=== PATIENT | female | born 1950 | race Caucasian/White ===

== ENCOUNTER → 2016-12-06 | Outpatient (CLI) | payer OTHER ==
[~2016-12-06] MED LIST: FAMO20TA9 PO; HYZ/10015 PO; LATA0.5S OP
--- NOTE | 2016-12-06 14:51 | DIAGNOSTIC IMAGING REPORT ---
LYMPH SENTINEL NODE ID CLINICAL HISTORY: INVASIVE LOBULAR Carcinoma, left BREAST COMPARISON STUDY: No previous studies for comparison. FINDINGS: A timeout was performed. 1 perilesional and 4 intradermal injections were performed over the palpable left breast mass. A total of 0.51 mCi of technetium 99m Lymphoseek was injected. No imaging was performed. Intraoperative localization will be obtained. IMPRESSION: A left breast lymphoscintigraphy injection was performed. Electronically signed by: Anthony Alegria M.D. 12/06/2016 2:50 PM Dictated Date/Time: 12/06/2016 2:48 PM
== END | disposition home or self-care (01) ==
LOC: C.NUCL 13:47
PROVIDERS: ATTEND Surgery
DX: D05.02 Lobular carcinoma in situ of left breast (principal)

== ENCOUNTER → 2017-04-12 | Outpatient (CLI) | payer OTHER ==
[~2017-04-12] MED LIST changes: +FMR25 PO; +IBUP-1427 PO
[2017-04-12 11:23] VITALS: BP 157/86; PULSE 85; TEMP 36.6; O2SAT 94
--- NOTE | 2017-04-12 13:14 | Radiation Oncology Follow-Up ---
Radiation Oncology Follow-Up Date of Visit Apr 12, 2017. Reason For Visit One-month follow-up and cancer survivorship care plan Radiation Completion Date finished 02-26-2017 Diagnosis (1) Primary malignant neoplasm of upper outer quadrant of left female breast Status: Resolved Onset Date: 11/19/2016 Histology Subtype: lobular Stage: ll Permanent Comment: Abnormal left breast mammogram Status post ultrasound-guided core needle biopsies 11/19/2016 Invasive lobular carcinoma, grade 1 Estrogen receptor positive, progesterone receptor positive, HER-2/leighton negative Status post left partial mastectomy and deep sentinel lymph node biopsy with mapping 12/07/2016 Stage pT2 pN1mi M0 Oncotype DX score of 7 Status post completion of radiation therapy 02/26/2017. She received 5130 cGy utilizing hypo-fractionation. Last Edited By: Jessica Guerrero on Mar 11, 2017 16:52 History of Present Illness Ms. Brown is without a family history of breast cancer. She underwent a bilateral screening mammogram on 11/06/2016 at [facility]. A focal area suggestive of some spiculation was seen in the upper outer left breast with recommended spot compression CC and MLO views as well as targeted ultrasound was recommended. On 11/09/2016 patient underwent spot compression images revealing a spiculated density in the upper outer left breast at about 3: 00 approximately 7.5 cm in the nipple which persisted on compression. Targeted ultrasound of the left breast at the 3 to 4 o'clock position demonstrated an indistinct hypoechoic lesion worrisome for an infiltrative mass. Ultrasound- guided biopsy was recommended. On 11/19/2016 patient underwent ultrasound-guided biopsy of the left breast mass. This revealed an invasive lobular carcinoma Evan grade 1 of 3. Estrogen receptors were positive (100%, strong intensity, H score 300). Progesterone receptors are positive (50%, strong intensity, H score 150). HER-2 /elighton overexpression was negative. Ki-67 proliferation index was 8% (low). The tumor cells were confirmed negative for HER-2/leighton amplification by FISH analysis. Case: [id number]. Patient was seen by Dr. Dawit Santos. He discussed treatment options with the patient. The patient opted to proceed with breast conserving therapy. Therefore on 12/12/2016 she underwent a left partial mastectomy and sentinel node biopsy. This confirmed an invasive lobular carcinoma, classic type measuring 3.0 x 2.0 x 1.0 cm. There was no lymphovascular or perineural invasion identified. The tumor was present at the inked inferior inferomedial margin. The tumor was much less than 1 mm from the deep margin although no ink on tumor was noted. Additional tissue from the inferior medial margin was taken and was negative for in situ and invasive carcinoma. Additional deep tissue was also taken and was negative for in situ and invasive carcinoma. A single sentinel node was identified. This revealed a micro-metastatic deposit of lobular carcinoma measuring 1 mm in greatest dimension with no extranodal extension identified. Case: [id number]. The final AJCC pathologic stage was therefore pT2 pN(sn)1mi, ER positive, UT positive and HER-2/leighton negative. An Oncotype DX test was ordered and recently reported. The recurrence score was 7. This places her in the low risk category. The patient was seen by Dr. Neel Cardenas. After his evaluation of the patient and review of the Oncotype DX score he recommended no adjuvant systemic chemotherapy. He did recommend adjuvant antiestrogen therapy which will be started after the completion of her adjuvant radiation. We were asked to see the patient to discuss the role of adjuvant radiation. She underwent a CT simulation. She was found to be a candidate for hypo- fractionation. Her treatment was completed 02/26/2017. She received 5130 cGy. Interim History She's been doing well over the past month. There was skin irritation at the end of treatment that steadily healed. There was some mild peeling. There was itching. This is now resolved. She was started on Arimidex and took this for one week. She unfortunately had joint pain and stop the medication. She was seen in medical oncology and has been now change to Femara. She is tolerating this well and is not having the joint pain that she experienced with Arimidex. She also has been scheduled for follow-up mammography. She is going to have her mammograms at [facility]. Allergies Coded Allergies: Iodinated Diagnostic Agents (Verified Allergy, Severe, HIVES, 01/08/17) Home Medications Scheduled Famotidine (Pepcid), 20 MG PO DAILY Hctz/Losartan (Hyzaar 25MG/100MG), 1 TAB PO DAILY Latanoprost (Xalatan 0.005% Oph Valarie), 1 DROPS OP HS Letrozole (Femara), 1 TAB PO DAILY Scheduled PRN Ibuprofen Tab (Motrin), 600 MG PO Q6H PRN for Pain Review of Systems Gastrointestinal: Symptoms: WNL Oral: Symptoms: No Problems Respiratory: Symptoms: Moist Cough, SOB With Exertion, Productive Cough Sputum Character: occ clear sputum Urinary: Symptoms: Nocturia Comments: nocturia times 1 Skin: Symptoms: No Problems Breast: Right Upper Arm Measurement: 27.0 Right Mid Arm Measurement: 23.0 Right Wrist Measurement: 15.5 Left Upper Arm Measurement: 28.0 Left Mid Arm Measurement: 22.5 Left Wrist Measurement: 15.5 Arm Dominence: Right Patient Cosmetic Evaluation: Good Staff Cosmetic Evalaluation: Good Physical Exam Vital Signs Date Time Temp Pulse Resp B/P (MAP) Pulse Ox O2 Delivery O2 Flow Rate FiO2 04/12/17 11:23 36.6 85 16 157/86 94 Fatigue: None General Appearance: no apparent distress Eyes: normal inspection, EOMI ENT: normal ENT inspection, hearing grossly normal Neck: no adenopathy, thyroid normal Respiratory/Chest: lungs clear, no respiratory distress, no accessory muscle use Breast: Breast examination reveals well-healed incisions of the left breast. There are no masses or tenderness and no axillary adenopathy. There is resolving hyperpigmentation. There is minimal edema. She has no skin retractions or nipple changes. Using the [place] score cosmesis she has a good outcome. The right breast showed no masses or tenderness and no axillary adenopathy. Cardiovascular: regular rate, rhythm, no gallop, no murmur Extremities: no pedal edema Neurologic/Psychiatric: no motor/sensory deficits, alert, normal mood/affect Skin: warm/dry Lymphatic: no adenopathy Pain Management Patient Reports Pain: No Side: Bilateral Patient Preferred Pain Scale: 0 - 10 Initial Pain Intensity: 0.0 Pain Management Plan She does not require any pain management. Laboratory Laboratory Results: not applicable Pathology Pathology Results: not applicable Imaging Imaging Studies: not applicable Assessment & Plan Plan: Continue regular follow-up with Dr. Cardenas, her primary care physician , and breast surgeon. Mammography has been scheduled for June. She'll have this at [facility]. We discussed that these should continue to be diagnostic mammograms. She is going to continue the Femara. Today we completed a cancer survivorship care plan. A copy of the document was given to the patient. She was given a survivorship booklet. She continues to smoke 1-1/2 pack per day. We discussed smoke cessation. We discuss weaning off of cigarettes. She was given a card for the 1 800 quit line. She was offered to joint smoke cessation classes here or at [facility]. She declined to be referred to smoke cessation. We reviewed the late side effects of radiation and in this we discussed the concerns of treatment and effects to the lung for patients who smoke and continue to smoke. She will try to decrease smoking on her own. I've asked her to call should she change her mind about joining the smoke cessation program. Total Time In Follow-Up I spent 20 minutes speaking to the patient to perform examination. I spent 20 minutes reviewing information, preparing the survivorship document, and completing this note. [place] Copy To Dawit Santos M.D.; Kimmie Lira D.O.; Neel Cardenas MD
== END | disposition home or self-care (01) ==
LOC: C.ONC 11:16
PROVIDERS: ATTEND Physician Assistant Medical
DX: Z08 Encounter for follow-up examination after completed treatment for malignant neoplasm (principal); Z92.3 Personal history of irradiation; Z85.3 Personal history of malignant neoplasm of breast

== ENCOUNTER → 2017-04-22 | Outpatient (CLI) | payer OTHER | END | disposition home or self-care (01) | LOC: C.MAMM 14:06 | PROVIDERS: ATTEND Internal Medicine Hematology & Oncology | DX: C50.919 Malignant neoplasm of unspecified site of unspecified female breast (principal); M85.88 Other specified disorders of bone density and structure, other site ==

== ENCOUNTER 2025-03-06 14:52 | Inpatient (IN) ==
--- NOTE | 2025-03-06 15:45 | Emergency Department Note ---
Impression & Plan Hypomagnesemia, Weakness, SOLANGE (acute kidney injury), Hypokalemia, Dehydration, Unexplained weight loss, Loss of appetite, Multiple pulmonary nodules ED Provider Note CHIEF COMPLAINT: Weakness HISTORY OF PRESENTING ILLNESS: This 75-year-old female patient presents to the emergency department for evaluation of weakness. The patient states that she has not really been able to eat or drink much of anything for the past 2 months because of decreased appetite. She feels like she continues to get weaker from not eating and drinking much. She states that she just has no desire to eat anything because she has lost her taste. Mainly only eating broth at this time. She has had problems since the end of December when she had a bad taste in her mouth that she thought was from using her inhaler for her emphysema. She took a mouthwash for thrush without improvement of her symptoms. 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 She has a history of bladder cancer and has been having treatments for the past year. The patient has not had any imaging since the symptoms started. She states that the weakness is generalized and nonfocal. She states it is more to just she feels tired and weak. She will sometimes get some numbness and tingling into the hands and feet and feel dizzy and lightheaded. She states that she has lost 30 pounds since December 05, 2024. Per urology note on 12/21/2024, the patient has a history of a bladder tumor status post initial TURBT on 04/14/2024. She had an incredibly large anterior dome bladder mass that was removed. This came back high-grade cancer without muscle. The patient had a repeat resection on 06/03/2024 which was negative for carcinoma and had muscle in the specimen. The patient completed induction BCG on 08/06/2024. She completed her first dose of maintenance BCG on 11/26/2024. The patient had a cystoscopy and a CT urogram on 12/21/2024 that showed no recurrence and her cystoscopy was negative. The patient will continue on maintenance BCG at 3, 6, 12, 18, 24, 30, and 36 months. The patient has a history of breast cancer in the past as well. REVIEW OF SYSTEMS: See HPI for pertinent positives and pertinent negatives. ALLERGIES: IV contrast (able to be premedicated), terbinafine, oxybutynin, Versed MEDICATIONS: See below PAST MEDICAL HISTORY: See below PHYSICAL EXAM: VITALS: Vitals are noted on the nurse's note and reviewed by myself. GENERAL: Non toxic, in no acute distress, non-diaphoretic. SKIN: Capillary refill <2 sec. EYES: PERRLA. EOMI. Conjunctivae without injection, sclerae without icterus. NOSE: Patent without discharge. MOUTH: Mucous membranes dry. Tongue is dry and somewhat cracked as well. No evidence for thrush at this time. Uvula midline. Airway patent. NECK: Supple without nuchal rigidity. HEART: Regular rate and rhythm without murmurs gallops or rubs. LUNGS: Clear to auscultation bilaterally without wheezes, rales or rhonchi. No retractions or accessory muscle use. ABDOMEN: Positive bowel sounds x 4. Normal tympanic percussion. Soft, nontender to palpation. No masses or hepatosplenomegaly. Mathur sign negative. No CVA tenderness. No guarding, rigidity, or rebound tenderness. No focal RLQ or LLQ tenderness. MUSCULOSKELETAL: No gross musculoskeletal defects. NEURO: Patient was alert and oriented. No focal neurological deficits. DIFFERENTIAL DIAGNOSIS: Differential diagnosis includes dehydration, GERD, peptic ulcer disease, acute injury cranial abnormality, cardiopulmonary etiology, acute intra-abdominal/pelvic etiology, metastases from her bladder cancer and previous history of breast cancer, electrolyte abnormalities, vitamin deficiencies, acute renal injury, or others. ED COURSE AND MEDICAL DECISION MAKING: HISTORY FROM INDEPENDENT HISTORIAN: Additional history obtained from the patient's MEDICATIONS GIVEN: 1 L normal saline solution bolus. Pepcid 20 mg IV. She was premedicated with Benadryl 50 mg IV and Solu-Medrol [address] scan. Potassium chloride 40 meq po. Magnesium 2 g IV. MONITOR: Continuous athletic monitor: Order was placed for continuous athletic monitor. Patient was placed on the athletic monitor and continuous pulse ox. Patient was noted to be in normal sinus rhythm at an initial rate of 80 bpm per my interpretation. EKG: EKG was interpreted by myself as normal sinus rhythm at 89 bpm with no acute ST or T wave changes. INTERPRETATION OF LABS: I interpreted the labs with full lab results as below in the lab section of this note. Laboratory results pertinent to the emergent complaint are discussed in the MDM section below. The patient was advised to follow up with their PCP and/or specialist(s) for further outpatient monitoring and management of any abnormal results. INTERPRETATION OF IMAGING: Imaging studies were interpreted by myself and read by radiology as per the imaging section of this note. The patient was advised to follow up with their PCP and/or specialist(s) for further outpatient management of any non-emergent abnormal findings. CT scan of the head without contrast showed no acute intracranial abnormality. There was chronic white matter ischemic changes. CT scan of the chest with IV contrast showed scattered pulmonary nodular densities measuring up to 1.3 cm. Given symptoms and history, recommend further evaluation with PET/CT. CT scan of the abdomen and pelvis with IV contrast shows a left lower lobe lung nodule also seen on the CT scan of the chest. Cholelithiasis. Probable left adrenal adenoma. Diverticulosis. EXTERNAL RECORDS REVIEWED: I reviewed the patient's most recent urology note as summarized above. CHRONIC MEDICAL/SOCIAL CONDITIONS AFFECTING CARE: History of bladder cancer currently undergoing treatment with a history of breast cancer in the past. CONSULTATIONS: On-call hospitalist CRITICAL CARE: I have personally spent 35 minutes of critical care time in the direct management of this patient. This includes bedside care, interpretation of diagnostic studies, and testing, discussion with consultants, patient, and family members, and other required patient management activities. This 35 minutes is in excess of all separately billable procedures. MDM SUMMARY: I examined the patient. The patient states that she has not been able to eat or drink much of anything since the end of December. She states that she has no taste and no appetite. She was treated for thrush without improvement of her symptoms. She also states that she was diagnosed with burning mouth syndrome. The patient states that she has had a 30 pound weight loss since the end of November. The patient has a history of bladder cancer undergoing treatment with urology. She also has a history of breast cancer in the past. The patient denies any pain or vomiting or other symptoms at this time other than the unexplained weight loss and no appetite from lack of taste. An IV lock was placed and labs were drawn. The patient was given 1 L normal saline solution bolus as well as Pepcid 20 mg IV. The patient was premedicated with Benadryl and Solu-Medrol prior to CT scan. The patient's potassium was low and she was given oral potassium supplement. The patient's magnesium was significantly low and she was given magnesium 2 g IV. The patient declined any medication for pain or nausea while she was in the emergency department. White blood cell count normal at 7.12. Hemoglobin elevated at 16.5 which may be secondary to dehydration. Platelet count normal at 192. INR elevated at 1.2 and PTT elevated at 12.4. Potassium low at 3.0 and she was given an oral potassium supplement. Creatinine elevated at 1.97 and BUN elevated at 28 which is likely secondary from her dehydration. Anion gap elevated at 20. Sodium was normal. LFTs were normal. Total protein elevated 8.6, globulin high at 4.8. Magnesium significantly low at 0.8 and she was given 2 g of magnesium IV. High- sensitivity troponin slightly elevated at 14.8, but improved to 13.4 on repeat. Lipase normal. Vitamin B12 elevated at 1330. Vitamin D normal at 38. TSH normal. The patient was unable to give a urine sample while in the ER. CT scan of the head without contrast showed no acute intracranial abnormality. There was chronic white matter ischemic changes. CT scan of the chest with IV contrast showed scattered pulmonary nodular densities measuring up to 1.3 cm. Given symptoms and history, recommend further evaluation with PET/CT. CT scan of the abdomen and pelvis with IV contrast shows a left lower lobe lung nodule also seen on the CT scan of the chest. Cholelithiasis. Probable left adrenal adenoma. Diverticulosis. I had a meaningful discussion about this patient with Dr. Agustin who agrees with my assessment and the treatment plan. The patient has evidence of dehydration as well as significant hypomagnesemia on exam. The patient has been failing to thrive at home due to her lack of appetite and unexplained weight loss. Therefore, the patient will require admission for further management. I spoke with the on-call hospitalist who agreed to admit the patient for further evaluation and treatment. Please refer to their dictation for further details. The patient's care was transferred in stable condition. DIAGNOSIS: Significant hypomagnesemia Dehydration Acute kidney injury Hypokalemia Unexplained weight loss Loss of appetite Pulmonary nodules Weakness Past Med/Surg History Problem List (Updated 03/07/25 @ 01:12 by Cathi Aguilar PA-C) Multiple pulmonary nodules (Acute) Loss of appetite (Acute) Unexplained weight loss (Acute) Dehydration (Acute) Elevated troponin Hypokalemia (Acute) Hypomagnesemia (Acute) SOLANGE (acute kidney injury) (Acute) Weakness (Acute) History of left breast cancer Declined smoking cessation Urinary disorder Gross hematuria Bladder carcinoma Hypertension COPD (chronic obstructive pulmonary disease) 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) Medical History Hx of bladder cancer area removed in Apr 2024 > no chemo or rad Limb alert care status left arm Acid reflux HX: breast cancer (11/19/16) left HTN (hypertension) Hx of bronchitis Slow to wake up after anesthesia was given something to relax her that made her feel like she was going to "pass out" On home oxygen therapy on 2lpm via NC at HS COPD (chronic obstructive pulmonary disease) with emphysema no res inh > controlled per pt Surgical History History of tooth extraction History of urologic surgery Transurethral Resection of the Bladder Tumor Hx of cystoscopy History of partial mastectomy of left breast (2016) Family History Father Depression Heart disease Mother Hypertension Stroke Social History Smoking Status: Current every day smoker Tobacco Type: Cigarettes Cigarettes Per Day: 10; Second Hand Exposure: No; Do You Dip or Chew Tobacco: No; Hx Alcohol Use: No Hx Substance Use: No Preferred Language: Cameroonian Communication Ability: Effective R And D Lab Technician Required: No Beliefs That Will Affect Care: None marital status: Current Living Situation: Spouse current occupational status: retired How many Children do You have: 2 Feels Safe at Home: Yes Diet: regular during the past year weight has: increased > 10 lbs Assistive Devices: Glasses and Oxygen - at Night Allergies Allergies Allergy/AdvReac Type Severity Reaction Status Date / Time Iodinated Contrast Media Allergy Severe HIVES Verified 07/30/24 13:38 terbinafine Allergy Severe Altered Verified 02/11/25 13:50 Sense of Taste oxybutynin AdvReac Intermediate dizzy and Verified 07/30/24 13:38 passes out midazolam [From Versed] AdvReac Verified 07/30/24 13:38 Home Meds Home Medications Medication Instructions Recorded Confirmed amlodipine 5 mg tablet 5 mg PO QAM 01/17/23 03/06/25 calcium 600 mg (as 1 cap PO DAILY 01/17/23 03/06/25 carbonate)-vitamin D3 12.5 mcg (500 unit) capsule latanoprost 0.005 % eye drops 1 drp ophthalmic (eye) HS 01/17/23 03/06/25 losartan 100 mg tablet 100 mg PO QAM 01/17/23 03/06/25 omeprazole 20 mg capsule,delayed 20 mg PO QAM 02/11/24 03/06/25 release umeclidinium 62.5 mcg-vilanterol 1 inh inhalation QAM 02/11/24 03/06/25 25 mcg/actuation powdr for inhalation (Anoro Ellipta) ibuprofen 200 mg tablet 200 mg PO Q6H PRN Pain 05/19/24 03/06/25 Results & Data (ED) Vital Signs Vital Signs - 24 hr 03/06/25 14:52 03/06/25 14:52 03/06/25 14:53 Temperature 37 C Temperature Source Temporal Artery Scan Pulse Rate 100 H Pulse Rate [Apical] 78 Pulse Rate from SpO2 Sensor Pulse Rhythm [Apical] Respiratory Rate 18 18 Respiratory Effort / Characteristics Non-Labored Spontaneous Non-Labored Spontaneous Respiratory Depth Normal Normal Respiratory Pattern Regular Blood Pressure 105/68 Blood Pressure [Right Arm] 106/65 Blood Pressure Mean 80 Blood Pressure Mean [Right Arm] 78 Pulse Oximetry 97 91 Oxygen Delivery Method Room Air Room Air Room Air Oxygen Flow Rate Sepsis Recent Fever Within 48 Hours No Sepsis New/Unexplained Change in Mental Status N/A Sepsis Action Taken by Nursing No Action Required 03/06/25 15:27 03/06/25 16:24 03/06/25 16:52 Temperature Temperature Source Pulse Rate 75 Pulse Rate [Apical] 76 Pulse Rate from SpO2 Sensor Pulse Rhythm [Apical] Respiratory Rate 18 Respiratory Effort / Characteristics Non-Labored Spontaneous Respiratory Depth Normal Respiratory Pattern Blood Pressure Blood Pressure [Right Arm] 109/59 L Blood Pressure Mean Blood Pressure Mean [Right Arm] 75 Pulse Oximetry 97 Oxygen Delivery Method Room Air Room Air Oxygen Flow Rate Sepsis Recent Fever Within 48 Hours Sepsis New/Unexplained Change in Mental Status Sepsis Action Taken by Nursing 03/06/25 18:00 03/06/25 18:33 03/06/25 19:00 Temperature Temperature Source Pulse Rate Pulse Rate [Apical] 86 Pulse Rate from SpO2 Sensor 74 Pulse Rhythm [Apical] Regular Respiratory Rate 18 Respiratory Effort / Characteristics Non-Labored Spontaneous Respiratory Depth Normal Respiratory Pattern Regular Blood Pressure 116/57 L Blood Pressure [Right Arm] Blood Pressure Mean 76 Blood Pressure Mean [Right Arm] Pulse Oximetry 86 L 96 90 Oxygen Delivery Method Room Air Nasal Cannula Nasal Cannula Oxygen Flow Rate 2 2 Sepsis Recent Fever Within 48 Hours Sepsis New/Unexplained Change in Mental Status Sepsis Action Taken by Nursing Laboratory Data 03/06/25 15:11 03/06/25 15:11 Lab Results 03/06/25 03/06/25 03/06/25 Range/Units 15:11 18:27 18:36 WBC 7.12 (4.8-10.8) K/ul RBC 5.65 H (4.20-5.40) M/uL Hgb 16.5 H (12.0-16.0) g/dL Hct 47.5 H (37.0-47.0) % MCV 84.1 (80.0-100.0) fL MCH 29.2 (25.0-34.0) pg MCHC 34.7 (32.0-36.0) g/dL RDW Std Deviation 42.2 (36.4-46.3) fL RDW Coeff of Chad 13.8 (11.5-14.5) % Plt Count 192 (130-400) K/uL MPV 13.4 H (9.4-12.4) fL Immature Gran % (Auto) 0.4 % Neut % (Auto) 68.8 % Lymph % (Auto) 22.5 % Major % (Auto) 7.3 % Eos % (Auto) 0.3 % Baso % (Auto) 0.7 % Neut # (Auto) 4.90 (1.40-6.50) K/uL Lymph # (Auto) 1.60 (1.20-3.40) K/uL Major # (Auto) 0.52 (0.11-0.59) K/uL Eos # (Auto) 0.02 (0.00-0.50) K/uL Baso # (Auto) 0.05 (0.00-0.20) K/uL Immature Gran # (Auto) 0.03 (0.01-0.20) K/uL PT Cancelled 12.4 H INR Cancelled 1.2 H APTT Cancelled 27 PTT Ratio Cancelled 1.0 Sodium 139 (136-145) mmol/L Potassium 3.0 L (3.5-5.1) mmol/L Chloride 98 (98-107) mmol/L Carbon Dioxide 21 (21-32) mmol/L Anion Gap 20 H (3-11) BUN 28 H (6-23) mg/dl Creatinine 1.97 H (0.6-1.2) mg/dl Est Cr Clr Drug Dosing Not Reportable eGFR 26.20 BUN/Creatinine Ratio 14.2 (10-20) Glucose 85 (70-99(Fasting)) mg/dl Calcium 9.0 (8.6-10.3) mg/dl Magnesium 0.8 L* (1.7-2.4) mg/dl Total Bilirubin 0.7 (0.2-1.0) mg/dl AST 14 (13-39) U/L ALT 9 (7-52) U/L Alkaline Phosphatase 94 (34-104) U/L Total Creatine Kinase 41 (26-192) U/L Troponin I High Sens 14.8 H 13.4 (0-14) pg/ml Total Protein 8.6 H (6.0-8.3) gm/dl Albumin 3.8 (3.4-5.0) gm/dl Globulin 4.8 H (2.5-4.0) gm/dl Albumin/Globulin Ratio 0.8 L (0.9-2) Lipase 39 (11-82) U/L Vitamin B12 1330 H (180-914) pg/ml 25-OH Vitamin D Total 38.0 (30-100) ng/ml TSH 1.535 (0.300-4.500) uIu/ml Lyme Disease Screen Negative (Negative) Administered Medications Magnesium Sulfate/Dextrose (Magnesium Sulfate / D5w) 1 gm in 100 mls @ 50 mls/hr IV Q2H MYRNA Stop: 03/07/25 00:59 Last Admin: 03/07/25 00:10 Dose: 50 mls/hr Documented By: uriel Discontinued Medications Diphenhydramine HCl (Diphenhydramine 50 Mg/Ml Vial) 50 mg IV ONE ONE Stop: 03/06/25 16:25 Last Admin: 03/06/25 16:48 Dose: 50 mg Documented By: nrs Sodium Chloride (Nss) 1,000 mls @ 999 mls/hr IV .Q1H1M ONE Stop: 03/06/25 17:24 Last Infusion: 03/06/25 17:42 Dose: Infused Documented By: nrs Admin: 03/06/25 16:49 Dose: 999 mls/hr Documented By: nrs Famotidine (Pepcid 20mg Iv Push) 20 mg in 5 mls @ 2.5 mls/min IV NOW STA Stop: 03/06/25 16:25 Last Admin: 03/06/25 16:49 Dose: 2.5 mls/min Documented By: nrs Magnesium Sulfate/Dextrose (Magnesium Sulfate / D5w) 1 gm in 100 mls @ 200 mls/hr IV Q30M MYRNA Stop: 03/06/25 18:49 Last Infusion: 03/06/25 19:20 Dose: Infused Documented By: Admin: 03/06/25 18:50 Dose: 200 mls/hr Documented By: Infusion: 03/06/25 18:39 Dose: Infused Documented By: Admin: 03/06/25 18:09 Dose: 200 mls/hr Documented By: mildred Lactated Ringer's (Lr) 1,000 mls @ 999 mls/hr IV .Q1H1M ONE Stop: 03/06/25 21:57 Last Admin: 03/07/25 00:04 Dose: 999 mls/hr Documented By: uriel Ioversol (Optiray 320 100ml) 90 ml IV ONCE ONE Stop: 03/06/25 17:54 Last Admin: 03/06/25 17:54 Dose: 90 ml Documented By: BALTAZAR Methylprednisolone (Methylprednisolone 125 Mg/2 Ml Vial) 40 mg IV NOW ONE Stop: 03/06/25 16:25 Last Admin: 03/06/25 16:48 Dose: 40 mg Documented By: mildred Potassium Chloride (Potassium Chloride Crtab 20 Meq Tabcr) 40 meq PO NOW STA Stop: 03/06/25 17:33 Last Admin: 03/06/25 17:40 Dose: 40 meq Documented By: nrs Imaging Data Radiologist's Impression: Abdomen/Pelvis CT 03/06/25 16:24 INDICATION: Loss of appetite, unexplained weight loss COMPARISON: None TECHNIQUE: Contiguous axial CT images were obtained through the abdomen and pelvis. Dose reduction according to patient size and/or automated exposure control techniques have been utilized for this exam. FINDINGS: CT ABDOMEN: LUNG BASES: Numerous bulla.Pulmonary scarring. There is 1 cm noncalcified pulmonary nodule in the left lower lobe. LIVER: No worrisome hepatic lesions. SPLEEN: Unremarkable. GALLBLADDER: Calcified gallstones. KIDNEYS: No hydronephrosis or nephrolithiasis. No solid renal lesions. PANCREAS: Unremarkable. ADRENAL GLANDS: Hypertrophy of the right adrenal gland. There is 1.4 cm low-attenuation left adrenal gland nodule, statistically representing an adenoma. PROXIMAL BOWEL: No small bowel obstruction. RETROPERITONEUM: No AAA. No significant lymphadenopathy. OTHER: No abscess. Grade 1 spondylolisthesis of L5 on S1 with bilateral L5 pars defects CT PELVIS: URINARY BLADDER: Unremarkable. PELVIC ORGANS: Unremarkable. DISTAL BOWEL: [id number] stool in the colon. Multiple scattered sigmoid diverticula OTHER: No significant lymphadenopathy. There is no free pelvic fluid. IMPRESSION: Left lower lobe lung nodule. Further evaluation with nuclear medicine pet imaging should be considered. Cholelithiasis. Probable left adrenal adenoma. Diverticulosis. Electronically signed by Guillermo Muniz 03-06-2025 6:[address] 03/06/25 16:24 CT CHEST WITH CONTRAST: HISTORY: Unexpected weight loss. History of cancer TECHNIQUE: CT of the chest was obtained with intravenous contrast. Coronal and sagittal reformats were created. IV CONTRAST: 100 mL of OMNIPAQUE 300 COMPARISON: None FINDINGS: LOWER NECK: Right thyroid lobe nodule measuring 1.3 cm LYMPH NODES: A few small nonenlarged lymph nodes in the mediastinum. No lymphadenopathy by size criteria. CARDIOVASCULAR: Cardiac size is mildly enlarged. Mild coronary artery calcifications are noted. No aortic aneurysm. No evidence of central pulmonary embolism or acute aortic process. Small pericardial fluid LUNGS: The trachea and central bronchi are widely patent. No focal confluent infiltrates are seen. Diffuse emphysema and pulmonary fibrosis with extensive cystic changes of the lungs. There are multiple nodular densities in the lungs. For example in the left lower lobe there are nodular densities measuring up to 1.1 cm in size (series 9, image 183). There is also a spiculated nodular density in the right upper lobe measuring approximately 1.3 cm (series 9 image 90). PLEURA: There are no pleural effusions. There is no pneumothorax. OSSEOUS STRUCTURES: No acute findings IMPRESSION: Scattered pulmonary nodular densities as above measuring up to 1.3 cm. Given symptoms and history, recommend further evaluation with PET/CT Electronically signed by Speedy Cordero 03-06-2025 7:[address] 03/06/25 16:24 INDICATION: Unexplained weight loss. Loss of appetite. COMPARISON: None TECHNIQUE: Contiguous 5 mm axial images from foramen magnum to vertex were obtained. Dose reduction according to patient size and/or automated exposure control techniques have been utilized for this exam. FINDINGS: There is no evidence of acute hemorrhage or mass effect. Bilateral white matter low attenuation areas are nonspecific, but likely related to chronic small vessel ischemic changes. There is no evidence of hydrocephalus, midline shift, or extra-axial fluid collections. IMPRESSION: 1. No CT evidence of acute intracranial pathology. 2. Chronic white matter ischemic changes. Electronically signed by Guillermo Muniz 03-06-2025 6:26 PM Discharge Plan Visit Data Chief Complaint: Weakness Stated Complaint: WEAKNESS, DECREASED PO INTAKE ED Provider: Parag Agustin ED Midlevel Provider: Cathi Aguilar Discharge Problem: Hypomagnesemia, Weakness, SOLANGE (acute kidney injury), Hypokalemia, Dehydration, Unexplained weight loss, Loss of appetite, Multiple pulmonary nodules Patient Disposition: Admitted As Inpatient Condition: Fair Discharge Instructions Interventions: ED Discharge Assessment Last Done: 03/06/25 20:55
[2025-03-06] MEDS: diphenhydrAMINE 50 MG/ML VIAL IV ONE (16:48)
[2025-03-06] MEDS: SODIUM CHLORIDE 0.9% 1,000 ML IV ONE (16:49)
[2025-03-06] MEDS: FAMOTIDINE 20MG IV PUSH 20 MG/5 ML SYR IV STA (16:49)
[2025-03-06 16:50] LABS: Hematocrit (blood only) 47.5 % (37.0-47.0); Hemoglobin 16.5 g/dL (12.0-16.0); Immature Granulocytes # (auto) 0.03 K/uL (0.01-0.20); Immature Granulocytes % (auto) 0.4 %; Mean Corpuscular Hemoglobin 29.2 pg (25.0-34.0); Mean Corpuscular Volume 84.1 fL (80.0-100.0); Platelet Count 192 K/uL (130-400); RDW Standard Deviation 42.2 fL (36.4-46.3); Red Blood Count 5.65 M/uL (4.20-5.40); White Blood Count 7.12 K/ul (4.8-10.8)
[2025-03-06 17:10] LABS: Anion Gap 20 (3-11); Calcium 9.0 mg/dl (8.6-10.3); Carbon Dioxide 21 mmol/L (21-32); Chloride 98 mmol/L (98-107); Potassium 3.0 mmol/L (3.5-5.1); Sodium 139 mmol/L (136-145)
[2025-03-06 17:16] LABS: Blood Urea Nitrogen 28 mg/dl (6-23); Glucose 85 mg/dl (70-99(Fasting))
[2025-03-06 17:29] LABS: Thyroid Stimulating Hormone 1.535 uIu/ml (0.300-4.500)
[2025-03-06] MEDS: POTASSIUM CHLORIDE CRTAB 20 MEQ TABCR PO STA (17:40)
[2025-03-06 17:47] LABS: Alanine Aminotransferase 9 U/L (7-52); Albumin Globulin Ratio 0.8 (0.9-2); Albumin Level 3.8 gm/dl (3.4-5.0); Alkaline Phosphatase 94 U/L (34-104); Bilirubin,Total 0.7 mg/dl (0.2-1.0); Globulin 4.8 gm/dl (2.5-4.0); Lipase 39 U/L (11-82); Magnesium 0.8 mg/dl (1.7-2.4); Total Protein 8.6 gm/dl (6.0-8.3)
[2025-03-06] MEDS: OPTIRAY 320 100ml IV ONE (17:54)
--- NOTE | 2025-03-06 17:55 | Emergency Department Note ---
ED Visit Note I had a meaningful discussion with the PA regarding patient. Though I did not see the patient face to face, I personally approved and/or made the documented management plan and acknowledge risk and complications. .
[2025-03-06] MEDS: MAGNESIUM SULFATE / D5W 1 GM/100 ML BAG IV SCH (18:09)
--- NOTE | 2025-03-06 18:25 | CT Scan Report ---
INDICATION: Loss of appetite, unexplained weight loss COMPARISON: None TECHNIQUE: Contiguous axial CT images were obtained through the abdomen and pelvis. Dose reduction according to patient size and/or automated exposure control techniques have been utilized for this exam. FINDINGS: CT ABDOMEN: LUNG BASES: Numerous bulla.Pulmonary scarring. There is 1 cm noncalcified pulmonary nodule in the left lower lobe. LIVER: No worrisome hepatic lesions. SPLEEN: Unremarkable. GALLBLADDER: Calcified gallstones. KIDNEYS: No hydronephrosis or nephrolithiasis. No solid renal lesions. PANCREAS: Unremarkable. ADRENAL GLANDS: Hypertrophy of the right adrenal gland. There is 1.4 cm low-attenuation left adrenal gland nodule, statistically representing an adenoma. PROXIMAL BOWEL: No small bowel obstruction. RETROPERITONEUM: No AAA. No significant lymphadenopathy. OTHER: No abscess. Grade 1 spondylolisthesis of L5 on S1 with bilateral L5 pars defects CT PELVIS: URINARY BLADDER: Unremarkable. PELVIC ORGANS: Unremarkable. DISTAL BOWEL: [id number] stool in the colon. Multiple scattered sigmoid diverticula OTHER: No significant lymphadenopathy. There is no free pelvic fluid. IMPRESSION: Left lower lobe lung nodule. Further evaluation with nuclear medicine pet imaging should be considered. Cholelithiasis. Probable left adrenal adenoma. Diverticulosis. Electronically signed by Guillermo Muniz 03-06-2025 6:23 PM
--- NOTE | 2025-03-06 18:26 | CT Scan Report ---
INDICATION: Unexplained weight loss. Loss of appetite. COMPARISON: None TECHNIQUE: Contiguous 5 mm axial images from foramen magnum to vertex were obtained. Dose reduction according to patient size and/or automated exposure control techniques have been utilized for this exam. FINDINGS: There is no evidence of acute hemorrhage or mass effect. Bilateral white matter low attenuation areas are nonspecific, but likely related to chronic small vessel ischemic changes. There is no evidence of hydrocephalus, midline shift, or extra-axial fluid collections. IMPRESSION: 1. No CT evidence of acute intracranial pathology. 2. Chronic white matter ischemic changes. Electronically signed by Guillermo Muniz 03-06-2025 6:26 PM
--- NOTE | 2025-03-06 19:06 | CT Scan Report ---
CT CHEST WITH CONTRAST: HISTORY: Unexpected weight loss. History of cancer TECHNIQUE: CT of the chest was obtained with intravenous contrast. Coronal and sagittal reformats were created. IV CONTRAST: 100 mL of OMNIPAQUE 300 COMPARISON: None FINDINGS: LOWER NECK: Right thyroid lobe nodule measuring 1.3 cm LYMPH NODES: A few small nonenlarged lymph nodes in the mediastinum. No lymphadenopathy by size criteria. CARDIOVASCULAR: Cardiac size is mildly enlarged. Mild coronary artery calcifications are noted. No aortic aneurysm. No evidence of central pulmonary embolism or acute aortic process. Small pericardial fluid LUNGS: The trachea and central bronchi are widely patent. No focal confluent infiltrates are seen. Diffuse emphysema and pulmonary fibrosis with extensive cystic changes of the lungs. There are multiple nodular densities in the lungs. For example in the left lower lobe there are nodular densities measuring up to 1.1 cm in size (series 9, image 183). There is also a spiculated nodular density in the right upper lobe measuring approximately 1.3 cm (series 9 image 90). PLEURA: There are no pleural effusions. There is no pneumothorax. OSSEOUS STRUCTURES: No acute findings IMPRESSION: Scattered pulmonary nodular densities as above measuring up to 1.3 cm. Given symptoms and history, recommend further evaluation with PET/CT Electronically signed by Speedy Cordero 03-06-2025 7:04 PM
--- NOTE | 2025-03-06 19:39 | History & Physical Report ---
Date of Service March 06, 2025 Assessment & Plan (1) Weakness: (2) SOLANGE (acute kidney injury): (3) Hypomagnesemia: (4) Hypokalemia: (5) Elevated troponin: Plan 75-year-old female PMHx COPD, HTN, bladder carcinoma s/p TURBT 04/14/2024, history of breast cancer presenting for weakness x 2 months. Her evaluation is significant for potassium of 3, magnesium 0.8, elevated creatinine. Troponin slightly elevated at 14.8, EKG without ischemic changes. Elevated B12. Her imaging reveals scattered pulmonary nodules, no acute changes otherwise. Admission for SOLANGE, hypomagnesemia/hypokalemia. #Weakness Ongoing x 2 months, suspect multifactorial. Patient with SOLANGE, hypomagnesemia/hypokalemia. Has been unable to tolerate oral intake secondary to oral symptoms. Suspect majority of her symptoms are because of this, she does appear dry on labs. Workup does not reveal any acute indications of infection, normal cardiac markers, normal thyroid. Pending UA. Pending remaining workup. - CBC without leukocytosis or leukopenia, H&H 16.5/47.5; PT/INR 12.4/1.2; CMP K 3.0, BUN 28, creatinine 1.97, protein 8.6, globulin 4.8; magnesium 0.8; troponin 14.8, 13.4 on repeat; vitamin B12 1330, TSH 1.535 - BMP am - UA pending - Head CT without acute findings - Chest CT scattered pulmonary nodular densities up to 1.3 cm - CTAP LLL nodule, cholelithiasis, probable L adrenal adenoma, diverticulosis - IVF LR 1L bolus then 100 mL/h - Acetaminophen prn fever/pain - Zofran prn N/V - Deferred antibiotics at time of admission, no clear infection nor having infectious symptoms (stable to CBC, no infectious findings on imaging) - adjust as medically appropriate - PT/OT consulted - appreciate assistance #SLOANGE Likely secondary to renal hypoperfusion from decreased intake over the past 2 months. Received 1L NSS. - Cr 1.97, BUN 28 - BMP am - UA pending - Bladder scan prn - CTAP - Hold nephrotoxic agents - Avoid NSAIDs - IVF LR 1L now then @ 100 mL/hr #Hypomagnesemia/Hypokalemia Weakness, ongoing x 2 months. Decrease intake overall secondary to poor taste with oral intake. Received KCl 40 mEq p.o. and mag sulfate 2 g IV in ED. - K 3.0, Mag 0.8 - BMP, Mg am - EKG NSR - Mag sulfate 2g IV now - total 4g IV - Mg pending repeat after replacement #Pulmonary nodules/COPD/nicotine dependence Pt reports knowing of L lung nodule, h/o smoking + COPD. Still smokes, ~ 1ppd. - Chest CT scattered pulmonary nodular densities - CTAP LLL nodule - consider PET scan - O2 2L HS - continue - Continue inhalers - Nicotine 21mg patch prn - Encouraged cessation #Elevated troponin Pt w/ h/o PVCs, COPD. No current chest pain or SOB. - Troponin 14.8, 13.4 - repeat if chest pain - EKG NSR, without ischemic changes - Likely 2/2 demand #Burning Mouth Syndrome Follow-up with ENT, PCP for such. Reports ongoing send December. Initially had periodontal infection in beginning of December 2024. Continues to have "f lowered sawdust" taste in mouth. No prior rheumatological workup, does have a slight adenoma identified on CTAP as well as right changes of the lungs. ? Sjogren's vs tick vs vitamin. Patient does states that she has an upcoming appointment with provider specializing in this condition, however, will add additional workup to rule out different etiologies of her symptoms. - DEBBIE, ESR, CRP, histoplasmosis ab, [place], iron panel, folate, B6, anti-Ro, anti- La, tick panel, CK pending - Full liquid diet for now as requested per patient, can advance as patient tolerates - Magic mouthwash [facility] #Bladder CA- S/p TURBT 04/14/2024, repeat resection 06/03/2024 negative for carcinoma, induction BCG completed 08/06/2024; ongoing BCG treatment starting 03/11/2025; continues to follow with urology, most recent visit 12/21/2024 - continue to monitor #Breast CA- L sided 11/19/2016 #Adrenal adenoma- Identified on CTAP, L adrenal adenoma - ? Systemic condition, continue to monitor as appropriate #HTN- Amlodipine, losartan - continue #GERD- Omeprazole - hold at time of admission, electrolyte disturbances Dispo: Admit, med/tele VTE prophylaxis: SCDs This document was dictated utilizing [employer]. Please excuse any grammatical errors that may be secondary to use of this software. Admission and Anticipated Discharge Date Admission Date: 03/06/2025 History of Present Illness Chief Complaint: Weakness Primary Care Provider: DIMITRI Leon 75-year-old female PMHx COPD, HTN, bladder carcinoma s/p TURBT 04/14/2024, history of breast cancer presenting for weakness x 2 months. Patient reports 2 years ago she had episode of similar symptoms where she had a bad taste in her mouth. It was found to be peritonsillar disease and she was treated with antibiotics and it resolved. 2 days WOODEN FENCE [employer] she states she had a "bad taste" in her mouth so she called her dentist at that time again who to treat her with antibiotics and then evaluated her oropharynx, she was without definable lesions. She was on oral antibiotics as well as Biotene mouthwash, toothpaste. Patient continued to have ongoing symptoms, were not resolved with medications. Was seen by ENT, diagnosed with burning mouth syndrome. She reports inability to tolerate solid foods given the abnormal sensation and dryness in her mouth. She does drink liquids, but still has some difficulties with this. Denies any pain or odynophagia, just has an abnormal taste that has been bothersome to her specially when eating. She does occasionally have sensation that there is "snot stuck in her throat". No additional congestive symptoms, no coughing. Given her inability to tolerate oral intake, she has had ongoing weakness worsening since this is started. Weakness is described as generalized, no focal deficits. She does have lightheadedness, specifically when changing positions. Has not passed out. No falls. She does have a history of COVID. Denies chest pain, SOB, palpitations, abdominal pain, N/V/D/C, focal deficits (extremities), fever/chills, additional URI symptoms, falls or syncope. Patient does have upcoming BCG treatment for bladder cancer first week of March. ED evaluation CBC without leukocytosis or leukopenia, H&H 16.5/47.5, platelets WNL; PT/INR pending; CMP potassium 3, AG 12, BUN 28, creatinine 1.97, protein 8.6, globulin 4.8; magnesium 0.8; troponin 14.8, pending repeat; vitamin B12 1330, TSH 1.535; CTAP left lower lobe nodule, cholelithiasis, probable L adrenal adenoma, diverticulosis; chest CT scattered pulmonary nodular densities; head CT no acute findings, chronic white matter ischemic changes; EKG NSR at 89 bpm.; Provided with 1L NSS, KCl 40 mEq p.o., methylprednisolone 40 mg IV, mag sulfate 2 g IV, famotidine 20 mg IV, diphenhydramine 50 mg IV in ED. Please see Dr. Naylor's attestation for adjustments/additions to treatment plan. Allergies Allergy/AdvReac Type Severity Reaction Status Date / Time Iodinated Contrast Media Allergy Severe HIVES Verified 07/30/24 13:38 terbinafine Allergy Severe Altered Verified 02/11/25 13:50 Sense of Taste oxybutynin AdvReac Intermediate dizzy and Verified 07/30/24 13:38 passes out midazolam [From Versed] AdvReac Verified 07/30/24 13:38 Home Medications Medication Instructions Recorded Confirmed Type amlodipine 5 mg tablet 5 mg PO QAM 01/17/23 03/06/25 History calcium 600 mg (as 1 cap PO DAILY 01/17/23 03/06/25 History carbonate)-vitamin D3 12.5 mcg (500 unit) capsule latanoprost 0.005 % eye drops 1 drp ophthalmic (eye) HS 01/17/23 03/06/25 History losartan 100 mg tablet 100 mg PO QAM 01/17/23 03/06/25 History omeprazole 20 mg capsule,delayed 20 mg PO QAM 02/11/24 03/06/25 History release umeclidinium 62.5 mcg-vilanterol 1 inh inhalation QAM 02/11/24 03/06/25 History 25 mcg/actuation powdr for inhalation (Anoro Ellipta) ibuprofen 200 mg tablet 200 mg PO Q6H PRN Pain 05/19/24 03/06/25 History Past Med/Surg History Problem List (Updated 03/07/25 @ 16:32 by Drake Moreira PA-C) Tobacco user On home oxygen therapy on 2lpm via NC at HS Multiple pulmonary nodules (Acute) Loss of appetite (Acute) Unexplained weight loss (Acute) Dehydration (Acute) Elevated troponin Hypokalemia (Acute) Hypomagnesemia (Acute) SOLANGE (acute kidney injury) (Acute) Weakness (Acute) History of left breast cancer Declined smoking cessation Urinary disorder Gross hematuria Bladder carcinoma Hypertension COPD (chronic obstructive pulmonary disease) 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) Medical History Hx of bladder cancer area removed in Apr 2024 > no chemo or rad Limb alert care status left arm Acid reflux HX: breast cancer (11/19/16) left HTN (hypertension) Hx of bronchitis Slow to wake up after anesthesia was given something to relax her that made her feel like she was going to "pass out" On home oxygen therapy on 2lpm via NC at HS COPD (chronic obstructive pulmonary disease) with emphysema no res inh > controlled per pt Surgical History History of tooth extraction History of urologic surgery Transurethral Resection of the Bladder Tumor Hx of cystoscopy History of partial mastectomy of left breast (2016) Family History Father Depression Heart disease Mother Hypertension Stroke Social History Smoking Status: Current every day smoker Tobacco Type: Cigarettes Cigarettes Per Day: 10; Second Hand Exposure: No; Do You Dip or Chew Tobacco: No; Hx Alcohol Use: No Hx Substance Use: No Preferred Language: Mosotho Communication Ability: Effective Installation Drafter Required: No Beliefs That Will Affect Care: None marital status: Current Living Situation: Spouse current occupational status: retired How many Children do You have: 2 Feels Safe at Home: Yes Diet: regular during the past year weight has: increased > 10 lbs Assistive Devices: Glasses and Oxygen - at Night Review of Systems Review of Systems: All systems reviewed & are unremarkable except as noted in Subjective Physical Exam Physical Exam: General: No acute distress Skin: Warm and dry Head: Normocephalic, atraumatic Eyes: PERRL, conjunctivae clear, sclera non-icteric; wearing glasses ENT: External ear and ear canal without swelling; nose atraumatic; good dentition, tongue normal appearance, pharynx normal, no visible ulcers Neck: Supple, no LAD Cardio: RRR, no M/G/R, S1 and S2 normal Resp: O2 via NC; No respiratory distress, Lungs CTA in all lobes bilaterally, no wheezes, rales, or rhonchi Abdomen: Soft, symmetric, nontender; No masses or hepatosplenomegaly; Bowel sounds normoactive MSK: No deformities; pulses palpable and equal; no edema. Neuro: Awake, alert; Sensation intact bilaterally; CN grossly intact Psych: Appropriate mood and affect; good judgement and insight. and PA student present in room at time of visit. Results & Data Results & Data Vital Signs (Past 12 Hours) Vital Signs Temp Pulse Pulse Resp BP BP Pulse Ox 03/06/25 19:00 116/57 L 90 03/06/25 18:33 96 03/06/25 18:00 86 18 86 L 03/06/25 16:52 76 18 109/59 L 97 03/06/25 16:24 03/06/25 15:27 75 03/06/25 14:53 37 C 100 H 18 105/68 91 03/06/25 14:52 78 18 106/65 97 03/06/25 14:52 O2 Del Method O2 Flow Rate 03/06/25 19:00 Nasal Cannula 2 03/06/25 18:33 Nasal Cannula 2 03/06/25 18:00 Room Air 03/06/25 16:52 Room Air 03/06/25 16:24 Room Air 03/06/25 15:27 03/06/25 14:53 Room Air 03/06/25 14:52 Room Air 03/06/25 14:52 Room Air Laboratory Results 03/06/25 15:11 WBC 7.12 RBC 5.65 H Hgb 16.5 H Hct 47.5 H MCV 84.1 MCH 29.2 MCHC 34.7 RDW Std Deviation 42.2 RDW Coeff of Chad 13.8 Plt Count 192 MPV 13.4 H Immature Gran % (Auto) 0.4 Neut % (Auto) 68.8 Lymph % (Auto) 22.5 Emmet % (Auto) 7.3 Eos % (Auto) 0.3 Baso % (Auto) 0.7 Neut # (Auto) 4.90 Lymph # (Auto) 1.60 Emmet # (Auto) 0.52 Eos # (Auto) 0.02 Baso # (Auto) 0.05 Immature Gran # (Auto) 0.03 PT Cancelled INR Cancelled APTT Cancelled PTT Ratio Cancelled Sodium 139 Potassium 3.0 L Chloride 98 Carbon Dioxide 21 Anion Gap 20 H BUN 28 H Creatinine 1.97 H Est Cr Clr Drug Dosing Not Reportable eGFR 26.20 BUN/Creatinine Ratio 14.2 Glucose 85 Calcium 9.0 Magnesium 0.8 L* Total Bilirubin 0.7 AST 14 ALT 9 Alkaline Phosphatase 94 Troponin I High Sens 14.8 H Total Protein 8.6 H Albumin 3.8 Globulin 4.8 H Albumin/Globulin Ratio 0.8 L Lipase 39 Vitamin B12 1330 H 25-OH Vitamin D Total 38.0 TSH 1.535 Diagnostic Findings Abdomen/Pelvis CT 03/06/25 16:24 INDICATION: Loss of appetite, unexplained weight loss COMPARISON: None TECHNIQUE: Contiguous axial CT images were obtained through the abdomen and pelvis. Dose reduction according to patient size and/or automated exposure control techniques have been utilized for this exam. FINDINGS: CT ABDOMEN: LUNG BASES: Numerous bulla.Pulmonary scarring. There is 1 cm noncalcified pulmonary nodule in the left lower lobe. LIVER: No worrisome hepatic lesions. SPLEEN: Unremarkable. GALLBLADDER: Calcified gallstones. KIDNEYS: No hydronephrosis or nephrolithiasis. No solid renal lesions. PANCREAS: Unremarkable. ADRENAL GLANDS: Hypertrophy of the right adrenal gland. There is 1.4 cm low-attenuation left adrenal gland nodule, statistically representing an adenoma. PROXIMAL BOWEL: No small bowel obstruction. RETROPERITONEUM: No AAA. No significant lymphadenopathy. OTHER: No abscess. Grade 1 spondylolisthesis of L5 on S1 with bilateral L5 pars defects CT PELVIS: URINARY BLADDER: Unremarkable. PELVIC ORGANS: Unremarkable. DISTAL BOWEL: [id number] stool in the colon. Multiple scattered sigmoid diverticula OTHER: No significant lymphadenopathy. There is no free pelvic fluid. IMPRESSION: Left lower lobe lung nodule. Further evaluation with nuclear medicine pet imaging should be considered. Cholelithiasis. Probable left adrenal adenoma. Diverticulosis. Electronically signed by Guillermo Muniz 03-06-2025 6:[address] 03/06/25 16:24 CT CHEST WITH CONTRAST: HISTORY: Unexpected weight loss. History of cancer TECHNIQUE: CT of the chest was obtained with intravenous contrast. Coronal and sagittal reformats were created. IV CONTRAST: 100 mL of OMNIPAQUE 300 COMPARISON: None FINDINGS: LOWER NECK: Right thyroid lobe nodule measuring 1.3 cm LYMPH NODES: A few small nonenlarged lymph nodes in the mediastinum. No lymphadenopathy by size criteria. CARDIOVASCULAR: Cardiac size is mildly enlarged. Mild coronary artery calcifications are noted. No aortic aneurysm. No evidence of central pulmonary embolism or acute aortic process. Small pericardial fluid LUNGS: The trachea and central bronchi are widely patent. No focal confluent infiltrates are seen. Diffuse emphysema and pulmonary fibrosis with extensive cystic changes of the lungs. There are multiple nodular densities in the lungs. For example in the left lower lobe there are nodular densities measuring up to 1.1 cm in size (series 9, image 183). There is also a spiculated nodular density in the right upper lobe measuring approximately 1.3 cm (series 9 image 90). PLEURA: There are no pleural effusions. There is no pneumothorax. OSSEOUS STRUCTURES: No acute findings IMPRESSION: Scattered pulmonary nodular densities as above measuring up to 1.3 cm. Given symptoms and history, recommend further evaluation with PET/CT Electronically signed by Speedy Cordero 03-06-2025 7:[address] 03/06/25 16:24 INDICATION: Unexplained weight loss. Loss of appetite. COMPARISON: None TECHNIQUE: Contiguous 5 mm axial images from foramen magnum to vertex were obtained. Dose reduction according to patient size and/or automated exposure control techniques have been utilized for this exam. FINDINGS: There is no evidence of acute hemorrhage or mass effect. Bilateral white matter low attenuation areas are nonspecific, but likely related to chronic small vessel ischemic changes. There is no evidence of hydrocephalus, midline shift, or extra-axial fluid collections. IMPRESSION: 1. No CT evidence of acute intracranial pathology. 2. Chronic white matter ischemic changes. Electronically signed by Guillermo Muniz 03-06-2025 6:26 PM Medications Administered 1L NSS KCl 40 mEq po Prednisone 40 mg IV Mag sulfate 2 g IV Famotidine 20 mg IV Diphenhydramine 50 mg IV ECG Additional Comments: NSR 89 bpm, ME 116, QRS 86, QT/QTc 378/459, PRT 77/83/78 Supervising Physician Co-Signing Physician Notes Attending addendum: I have physically seen this patient, have supervised the ROSIO's activities, and agree with the H&P unless as otherwise noted. Assessment and Plan: The patient is a 75-year-old female with past medical history including COPD, hypertension, bladder carcinoma status post TURBT 04-14-24, and history of breast cancer. She presents to the emergency department with progressive weakness over the past 2 months. Workup in the emergency department with the following abnormal laboratories: Potassium 3.0, magnesium 0.8, creatinine 1.97. Generalized weakness- Contributing factors including not limited to: Dehydration, hypokalemia, hypomagnesemia, uremia, others CT head showed chronic small vessel disease, and right thyroid nodule, which will need outpatient workup including ultrasound. CT scan abdomen pelvis showed left lower lobe nodule, cholelithiasis, probable left adrenal adenoma, and diverticulitis. No acute findings otherwise CT scan of chest showed scattered pulmonary nodular densities at 1.3 cm, which will need to be followed per protocol in the outpatient setting. Acetaminophen 650 mg by mouth every 6 hours as needed for mild pain or fever Zofran 4 mg IV every 6 hours as needed LR 1 L bolus, followed by maintenance at 100 mL/h Consult PT/OT Acute kidney injury- Creatinine 1.97 on admission with base 0.80 Follow urine culture sensitivity IV fluids as noted above Repeat laboratories in a.m. Electrolyte disturbances/hypokalemia/hypomagnesemia- Potassium 3.0 and magnesium 0.8 Replace as noted, recheck laboratories in a.m. Burning mouth syndrome- Unknown if workup has been begun, will therefore order laboratories as noted Symptomatic treatment with biotin and Magic mouthwash Remaining orders and notations as noted PG Care Time/CCT Total # of Minutes Spent Total Time Spent with Patient: Total time spent is greater than 50% in coordination of care (as documented) at patient's floor/unit and/or counseling patient: Coding Level of Care Code 09060 INT INP/OBS CARE 3/75MIN Diagnoses Weakness R53.1 SOLANGE (acute kidney injury) N17.9 Hypomagnesemia E83.42 Hypokalemia E87.6 Elevated troponin R79.89
[2025-03-06 19:49] LABS: INR 1.2 (0.9-1.1); Partial Thromboplastin Time 27 Seconds (21-31); Prothrombin Time 12.4 Seconds (9.0-12.0)
[2025-03-06] MEDS ORDERED: ONDANSETRON INJ 2 MG/ML 2 ML VIAL IV PRN (21:35)
[2025-03-06] MEDS ORDERED: MELATONIN 3 MG TAB PO PRN (21:35)
[2025-03-06] MEDS ORDERED: ACETAMINOPHEN 325 MG TAB PO PRN (21:35)
[2025-03-06] MEDS ORDERED: POLYETHYLENE (MIRALAX) 17 GM PACK PO PRN (21:35)
[2025-03-06 21:50] LABS: Creatine Kinase 41 U/L (26-192)
[2025-03-07] MEDS: LACTATED RINGER'S 1,000 ML IV ONE (00:04)
[2025-03-07] MEDS: MAGNESIUM SULFATE / D5W 1 GM/100 ML BAG IV SCH (00:10)
[2025-03-07] MEDS: LACTATED RINGER'S 1,000 ML IV SCH (02:06)
[2025-03-07 07:08] LABS: Anion Gap 14.0 (3-11); Blood Urea Nitrogen 23.0 mg/dl (6-23); Calcium 8.1 mg/dl (8.6-10.3); Carbon Dioxide 22.0 mmol/L (21-32); Chloride 104.0 mmol/L (98-107); Creatinine Clr Calc Pharmacy 37.1 ml/min; Glucose 150.0 mg/dl (70-99(Fasting)); Iron 59.0 mcg/dl (35-150); Magnesium 1.8 mg/dl (1.7-2.4); Potassium 3.7 mmol/L (3.5-5.1); Sodium 140.0 mmol/L (136-145); Total Iron Binding Cap Calc 211.0 mcg/dl (250-450); Transferrin 151.0 mg/dl (200-360); Transferrin (FE) Percent Satur 28.0 % (15-50)
[2025-03-07] MEDS ORDERED: NICOTINE 21 MG/24 HR TDSY TD SCH (09:00)
[2025-03-07] MEDS: FIRST - Mouthwash BLM 5 ML UDP PO SCH (09:58)
[2025-03-07] MEDS: LOSARTAN POTASSIUM 50 MG TAB PO SCH (09:58)
[2025-03-07] MEDS: UMECLIDINIUM/VILANTEROL 62.5/25MCG 7 PUFFS/INHALER INH SCH (09:58)
[2025-03-07] MEDS: REMOVE NICODERM PATCH SCH (10:00)
[2025-03-07] MEDS: MAGNESIUM SULFATE / D5W 1 GM/100 ML BAG IV ONE (10:10)
[2025-03-07 11:00] LABS: Appearance Urine Clear (Clear); Glucose Urine UA Negative (Negative)
--- NOTE | 2025-03-07 12:07 | Electrocardiogram Report ---
Test Reason : Blood Pressure : */* mmHG Vent. Rate : 89 BPM Atrial Rate : 89 BPM P-R Int : 116 ms QRS Dur : 86 ms QT Int : 378 ms P-R-T Axes : 77 83 78 degrees QTcB Int : 459 ms Normal sinus rhythm Normal ECG No previous ECGs available Confirmed by Alvarez Stanley ([id number]) on 03/07/2025 12:07:22 PM Referred By: REFERRED SELF Confirmed By: Alvarez Stanley
[2025-03-07 15:27] LABS: Anion Gap 11.0 (3-11); Blood Urea Nitrogen 20.0 mg/dl (6-23); Calcium 8.6 mg/dl (8.6-10.3); Carbon Dioxide 23.0 mmol/L (21-32); Chloride 103.0 mmol/L (98-107); Creatinine Clr Calc Pharmacy 45.4 ml/min; Glucose 130.0 mg/dl (70-99(Fasting)); Potassium 3.3 mmol/L (3.5-5.1); Sodium 137.0 mmol/L (136-145)
--- NOTE | 2025-03-07 16:29 | Hospitalist Progress Note ---
Date of Service March 07, 2025 Assessment & Plan (1) Weakness: Plan: * Most likely multifactorial to deconditioning, poor oral intake, BCG treatment, bladder cancer * PT/OT consults have been requested * Patient reports that she is feeling stronger and would like to be discharged home when stable * Patient received IV fluids. Encourage oral intake of fluids and diet today. (2) Bladder carcinoma: Plan: * TURBT on 04/14/2024. Unable to get CT urogram's due to a contrast allergy. She completed induction BCG on 08/06/2024. She completed her first maintenance dose of BCG on 11/26/2024. * Patient reports that she has PET/CT ordered but not scheduled (3) Multiple pulmonary nodules: Plan: * Identified on CT chest. Patient reports that she has PET/CT ordered but not scheduled * History of breast cancer and currently undergoing treatment for bladder cancer * Patient continues to smoke. Discussed need for smoking cessation (4) Dehydration: Plan: * Poor oral intake since starting BCG treatment for bladder cancer. * Patient received IV fluids and is feeling significantly improved. * Encouraged continued oral intake (5) Hypokalemia: Plan: * Magnesium and potassium found to be low on admission. These were repleted. Initially potassium went from 3.0-3.8. Repeat labs this afternoon show trending downward and now 3.3. * Continue to replete both potassium and magnesium. * Check repeat labs in the morning (6) Hypomagnesemia: Plan: * Magnesium was 0.8 on admission. Patient received 2 g of magnesium sulfate. Follow-up lab was then 1.8. Patient was given another gram of IV magnesium sulfate. Repeat labs 1.6 * Continue to follow serial labs (7) COPD (chronic obstructive pulmonary disease): Plan: * Patient on home oxygen and continues to smoke. * Continue supplemental oxygen to maintain SpO2 greater than 88% * Patient was offered nicotine patch and refuses. 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 * Patient requested nicotine patch ordered be discontinued as she will not be requesting it. Plan Case discussed with Dr. Flores Anticipate discharge home when stable pending PT/OT evals Admission and Anticipated Discharge Date Admission Date: March 06, 2025 Supervising Physician Co-Signing Physician Notes The patient was not seen by me. The chart was reviewed. Case discussed with MADELAINE Houston. Agree with assessment and plan Subjective Attending: Dr. Flores Patient mated yesterday for weakness, hypomagnesemia, hypokalemia, elevated troponin. She has a history of bladder cancer and is currently undergoing BCG treatment with Dr. Castle and urology. Patient reports that she has been weak for the past 2 months. She had lightheadedness and dizziness yesterday and came in for evaluation. She was found to have a magnesium of 0.8 and a potassium of 3.0. She was admitted and electrolytes were repleted. Repeat labs continue to show borderline low magnesium potassium and spite of repletion. Patient reports bland to foul tasting foods and drink since starting BCG. She reports poor oral intake at home. Patient did have CT chest abdomen pelvis which revealed hepatomegaly as well as multiple pulmonary lesions. Patient is a current everyday smoker. PET/CT is recommended. Patient aware that this must be completed outpatient and cannot be done during this admission. Patient feels as though she is stronger since receiving IV fluids. She continues to be a +1 assist. She denies any fever, chills, sweats, rigors. No other acute findings or complaints. Review of Systems 2 Review of Systems: A total of 10 systems was reviewed and is negative other than as listed in the HPI Physical Exam 2 Physical Exam: GENERAL : No acute distress EYES: No icterus, gaze conjugate NOSE: No evidence of epistaxis MOUTH: No lesions or candidiasis NECK: Supple LUNGS: CTA B/L, no wheezes, rales or rhonchi HEART: Regular, rate controlled ABDOMEN: Soft, NT, ND, BS Present EXTREMITIES: No LE edema, pedal pulses intact NEURO: A&OX3 Results & Data Results & Data Vital Signs (Past 12 Hours) Vital Signs Temp Pulse Pulse Resp BP Pulse Ox O2 Del Method 03/07/25 15:44 36.5 C 79 18 109/63 90 Nasal Cannula 03/07/25 15:06 72 03/07/25 11:33 Nasal Cannula 03/07/25 11:10 36.9 C 78 18 108/63 92 Nasal Cannula 03/07/25 08:06 36.8 C 91 H 18 99/55 L 90 Nasal Cannula 03/07/25 07:13 71 O2 Flow Rate 03/07/25 15:44 3 03/07/25 15:06 03/07/25 11:33 2 03/07/25 11:10 3 03/07/25 08:06 3 03/07/25 07:13 Laboratory Results 03/06/25 15:11 03/07/25 14:50 Diagnostic Findings Abdomen/Pelvis CT 03/06/25 16:24 INDICATION: Loss of appetite, unexplained weight loss COMPARISON: None TECHNIQUE: Contiguous axial CT images were obtained through the abdomen and pelvis. Dose reduction according to patient size and/or automated exposure control techniques have been utilized for this exam. FINDINGS: CT ABDOMEN: LUNG BASES: Numerous bulla.Pulmonary scarring. There is 1 cm noncalcified pulmonary nodule in the left lower lobe. LIVER: No worrisome hepatic lesions. SPLEEN: Unremarkable. GALLBLADDER: Calcified gallstones. KIDNEYS: No hydronephrosis or nephrolithiasis. No solid renal lesions. PANCREAS: Unremarkable. ADRENAL GLANDS: Hypertrophy of the right adrenal gland. There is 1.4 cm low-attenuation left adrenal gland nodule, statistically representing an adenoma. PROXIMAL BOWEL: No small bowel obstruction. RETROPERITONEUM: No AAA. No significant lymphadenopathy. OTHER: No abscess. Grade 1 spondylolisthesis of L5 on S1 with bilateral L5 pars defects CT PELVIS: URINARY BLADDER: Unremarkable. PELVIC ORGANS: Unremarkable. DISTAL BOWEL: [id number] stool in the colon. Multiple scattered sigmoid diverticula OTHER: No significant lymphadenopathy. There is no free pelvic fluid. IMPRESSION: Left lower lobe lung nodule. Further evaluation with nuclear medicine pet imaging should be considered. Cholelithiasis. Probable left adrenal adenoma. Diverticulosis. Electronically signed by Guillermo Muniz 03-06-2025 6:[address] 03/06/25 16:24 CT CHEST WITH CONTRAST: HISTORY: Unexpected weight loss. History of cancer TECHNIQUE: CT of the chest was obtained with intravenous contrast. Coronal and sagittal reformats were created. IV CONTRAST: 100 mL of OMNIPAQUE 300 COMPARISON: None FINDINGS: LOWER NECK: Right thyroid lobe nodule measuring 1.3 cm LYMPH NODES: A few small nonenlarged lymph nodes in the mediastinum. No lymphadenopathy by size criteria. CARDIOVASCULAR: Cardiac size is mildly enlarged. Mild coronary artery calcifications are noted. No aortic aneurysm. No evidence of central pulmonary embolism or acute aortic process. Small pericardial fluid LUNGS: The trachea and central bronchi are widely patent. No focal confluent infiltrates are seen. Diffuse emphysema and pulmonary fibrosis with extensive cystic changes of the lungs. There are multiple nodular densities in the lungs. For example in the left lower lobe there are nodular densities measuring up to 1.1 cm in size (series 9, image 183). There is also a spiculated nodular density in the right upper lobe measuring approximately 1.3 cm (series 9 image 90). PLEURA: There are no pleural effusions. There is no pneumothorax. OSSEOUS STRUCTURES: No acute findings IMPRESSION: Scattered pulmonary nodular densities as above measuring up to 1.3 cm. Given symptoms and history, recommend further evaluation with PET/CT Electronically signed by Speedy Cordero 03-06-2025 7:[address] 03/06/25 16:24 INDICATION: Unexplained weight loss. Loss of appetite. COMPARISON: None TECHNIQUE: Contiguous 5 mm axial images from foramen magnum to vertex were obtained. Dose reduction according to patient size and/or automated exposure control techniques have been utilized for this exam. FINDINGS: There is no evidence of acute hemorrhage or mass effect. Bilateral white matter low attenuation areas are nonspecific, but likely related to chronic small vessel ischemic changes. There is no evidence of hydrocephalus, midline shift, or extra-axial fluid collections. IMPRESSION: 1. No CT evidence of acute intracranial pathology. 2. Chronic white matter ischemic changes. Electronically signed by Guillermo Muniz 03-06-2025 6:26 PM PG Care Time/CCT Total # of Minutes Spent Total Time Spent with Patient: Total time spent is greater than 50% in coordination of care (as documented) at patient's floor/unit and/or counseling patient: Coding Level of Care Code 76120 SUB INP/OBS CARE 2/35MIN Diagnoses Weakness R53.1 Bladder carcinoma C67.9 Multiple pulmonary nodules R91.8 Dehydration E86.0 Hypokalemia E87.6 Hypomagnesemia E83.42 COPD (chronic obstructive pulmonary disease) J44.9 On home oxygen therapy Z99.81 Tobacco user Z72.0 Time Spent (min) 30
[2025-03-07] MEDS: LATANOPROST 0.005% OP SOLN 2.5 ML BTL OP SCH (19:39)
[2025-03-08 07:08] LABS: Hematocrit (blood only) 36.5 % (37.0-47.0); Hemoglobin 13.0 g/dL (12.0-16.0); Immature Granulocytes # (auto) 0.02 K/uL (0.01-0.20); Immature Granulocytes % (auto) 0.3 %; Mean Corpuscular Hemoglobin 30.2 pg (25.0-34.0); Mean Corpuscular Volume 84.7 fL (80.0-100.0); Platelet Count 159 K/uL (130-400); RDW Standard Deviation 43.1 fL (36.4-46.3); Red Blood Count 4.31 M/uL (4.20-5.40); White Blood Count 6.83 K/ul (4.8-10.8)
[2025-03-08 07:27] LABS: Anion Gap 9.0 (3-11); Blood Urea Nitrogen 15.0 mg/dl (6-23); Calcium 8.4 mg/dl (8.6-10.3); Carbon Dioxide 29.0 mmol/L (21-32); Chloride 105.0 mmol/L (98-107); Creatinine Clr Calc Pharmacy 65.2 ml/min; Glucose 99.0 mg/dl (70-99(Fasting)); Magnesium 1.1 mg/dl (1.7-2.4); Potassium 3.0 mmol/L (3.5-5.1); Sodium 143.0 mmol/L (136-145)
--- NOTE | 2025-03-08 09:48 | Hospitalist Progress Note ---
Date of Service March 08, 2025 Assessment & Plan (1) Weakness: (2) SOLANGE (acute kidney injury): (3) Hypomagnesemia: (4) Hypokalemia: Plan 75-year-old female PMHx COPD, HTN, bladder carcinoma s/p TURBT 04/14/2024, history of breast cancer presenting for weakness x 2 months. Her evaluation is significant for potassium of 3, magnesium 0.8, elevated creatinine. Troponin slightly elevated at 14.8, EKG without ischemic changes. Elevated B12. Her Chest CT reveals scattered pulmonary nodules. Admission for SOLANGE, hypomagnesemia/hypokalemia. #Weakness - Ongoing x 2 months, suspect multifactorial - dehydration/SOLANGE, hypomagnesemia/hypokalemia, BCG treatments/Bladder Cancer. Workup does not reveal any acute indications of infection, normal cardiac markers, normal thyroid. Recived IVFs and magnesium and potassium replacement PT/OT #SOLANGE | Hypomagnesemia/Hypokalemia - Likely secondary to renal hypoperfusion from decreased intake over the past [address] A/P without evidence of obstruction, no UTI. EKG without ST changes. Received IVF and Cr has normalized, baseline ~ 0.8 Mag 0.8 on admission, improved with repletion and now 1.1 - IV mag sulfate x 4 ordered today K 3.0 on admission, improved but now downtrendin.0 - replace PO and IV Would benefit from PO mag on discharge and discontinue PPI Follow magnesium after discharge-if remains low, consider magnesium wasting and check urine magnesium, consider nephrology referral #Pulmonary nodules/COPD/nicotine dependence - Pt reports knowing of L lung nodule, h/o smoking + COPD. Still smokes, ~ 1ppd. 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 Reports ongoing since December. Initially had periodontal infection in beginning of December 2024. Continues to have "flowered sawdust" taste in mouth. No prior rheumatological workup, does have a slight adenoma identified on CTAP as well as right changes of the lungs. ? Sjogren's vs tick vs vitamin. Patient does states that she has an upcoming appointment with provider specializing in this condition, however, will add additional workup to rule out different etiologies of her symptoms. - DEBBIE, ESR, CRP, histoplasmosis ab, [place], iron panel, folate, B6, anti-Ro, anti- La, tick panel, CK pending - Full liquid diet for now as requested per patient, can advance as patient tolerates - Magic mouthwash [place] #Bladder CA- S/p TURBT 04/14/2024, repeat resection 06/03/2024 negative for carcinoma, induction BCG completed 08/06/2024; ongoing BCG treatment, continues to follow with urology, most recent visit 12/21/2024 #Breast CA- L sided 11/19/2016 #Adrenal adenoma- Identified on CTAP, L adrenal adenoma - ? Systemic condition, continue to monitor as appropriate #HTN- Amlodipine, losartan - continue #GERD- Omeprazole - hold at time of admission, electrolyte disturbances-would not resume on discharge Dispo: continued inpatient stay for electrolyte replacement, will recheck labs after finishing IV mag DVT proph: lovenox added Admission and Anticipated Discharge Date Admission Date: March 06, 2025 Supervising Physician Co-Signing Physician Notes PA Supervision Note: I did not personally see or examine the patient today, but I verified all lopez points of MADELAINE Gimenez's assessment and plan with the following exceptions/additions: Reviewed evening labs and replaced KCl 40 mEq p.o. x 1 for persistent hypokalemia of 3.1. Change magnesium oxide to Slow-Mag 64 mg p.o. twice daily which is less likely to cause diarrhea which may worsen hypomagnesemia. Subjective patient seen lying in bed, reports feeling much better since admission has not been able to eat much at home because of burning mouth syndrome - is hoping to see a specialist soon. Does have some foods she can taste but mainly taste bad does not use cane or walker at home and reports was able to ambulate with th erapy today and do stairs tele - SR PAC/PVCs 60-120s, with brief runs of PAT Review of Systems Review of Systems: All systems reviewed & are unremarkable except as noted in Subjective Physical Exam Physical Exam: General: NAD, VS as above HEENT: MM dry, no oc or erythema Resp: normal respiratory effort, lungs clear to auscultation CV: RRR, no murmur, Abd: normal bowel sounds, non tender, soft Extremities: Moves all extremities, no edema Neuro: A&O x3, Results & Data Results & Data Vital Signs (Past 12 Hours) Vital Signs Temp Pulse Pulse Resp BP Pulse Ox O2 Del Method 03/08/25 08:12 98.0 F 63 20 107/57 L 95 Nasal Cannula 03/08/25 03:35 97.8 F 71 18 98/47 L 95 Nasal Cannula 03/07/25 23:17 98.1 F 78 20 106/57 L 95 Nasal Cannula 03/07/25 22:10 69 O2 Flow Rate 03/08/25 08:12 3 03/08/25 03:35 3 03/07/25 23:17 3 03/07/25 22:10 Laboratory Results cbc,k chemistry and mag reviewed UA reviewed PG Care Time/CCT Total # of Minutes Spent Total Time Spent with Patient: Total time spent is greater than 50% in coordination of care (as documented) at patient's floor/unit and/or counseling patient: Coding Level of Care Code 34629 SUB INP/OBS CARE 3/50MIN Diagnoses Weakness R53.1 SOLANGE (acute kidney injury) N17.9 Hypomagnesemia E83.42 Hypokalemia E87.6
[2025-03-08] MEDS: MAGNESIUM SULFATE / D5W 1 GM/100 ML BAG IV SCH (10:21)
[2025-03-08] MEDS: POTASSIUM CHLORIDE CRTAB 20 MEQ TABCR PO STA ×2 (10:22→21:39)
[2025-03-08] MEDS: POTASSIUM CHLORIDE / WTR 10 MEQ/100 ML PLCT IV SCH (10:22)
[2025-03-08 20:44] LABS: Anion Gap 7.0 (3-11); Blood Urea Nitrogen 12.0 mg/dl (6-23); Calcium 8.4 mg/dl (8.6-10.3); Carbon Dioxide 28.0 mmol/L (21-32); Chloride 104.0 mmol/L (98-107); Creatinine Clr Calc Pharmacy 73.4 ml/min; Glucose 93.0 mg/dl (70-99(Fasting)); Potassium 3.1 mmol/L (3.5-5.1); Sodium 139.0 mmol/L (136-145)
[2025-03-08] MEDS: ENOXAPARIN INJ 40 MG/0.4 ML SYR SQ SCH (20:57)
[2025-03-09 07:09] LABS: Hematocrit (blood only) 38.6 % (37.0-47.0); Hemoglobin 13.3 g/dL (12.0-16.0); Immature Granulocytes # (auto) 0.02 K/uL (0.01-0.20); Immature Granulocytes % (auto) 0.4 %; Mean Corpuscular Hemoglobin 29.7 pg (25.0-34.0); Mean Corpuscular Volume 86.2 fL (80.0-100.0); Platelet Count 149 K/uL (130-400); RDW Standard Deviation 43.8 fL (36.4-46.3); Red Blood Count 4.48 M/uL (4.20-5.40); White Blood Count 5.06 K/ul (4.8-10.8)
[2025-03-09 07:24] VITALS: BP 108/60; RESP 18; TEMP 97.5; O2SAT 90
[2025-03-09 07:44] LABS: Anion Gap 8.0 (3-11); Blood Urea Nitrogen 9.0 mg/dl (6-23); Calcium 8.2 mg/dl (8.6-10.3); Carbon Dioxide 28.0 mmol/L (21-32); Chloride 108.0 mmol/L (98-107); Creatinine Clr Calc Pharmacy 78.2 ml/min; Glucose 88.0 mg/dl (70-99(Fasting)); Magnesium 1.4 mg/dl (1.7-2.4); Potassium 3.6 mmol/L (3.5-5.1); Sodium 144.0 mmol/L (136-145)
[2025-03-09] MEDS ORDERED: MAGNESIUM OXIDE 400 MG TAB PO SCH (09:00)
[2025-03-09] MEDS: POTASSIUM CHLORIDE CRTAB 20 MEQ TABCR PO STA (10:08)
[2025-03-09] MEDS: MAGNESIUM CHLORIDE W/CALCIUM 64MG DELAYED REL TAB PO SCH (10:08)
[2025-03-09] MEDS: MAGNESIUM SULFATE / D5W 1 GM/100 ML BAG IV SCH (10:13)
--- NOTE | 2025-03-09 10:34 | Discharge Summary ---
Discharge Summary Date of Service March 09, 2025 Principal Dx & Hospital Course #1 = Principal Diagnosis (1) Weakness: (2) SOLANGE (acute kidney injury): (3) Hypomagnesemia: (4) Hypokalemia: Plan #Weakness 75-year-old female PMHx COPD, HTN, bladder carcinoma s/p TURBT 04/14/2024, history of breast cancer presenting for weakness x 2 months. Her evaluation is significant for potassium of 3, magnesium 0.8, elevated creatinine. Troponin slightly elevated at 14.8, EKG without ischemic changes. Elevated B12. Her Chest CT reveals scattered pulmonary nodules. Admission for weakness SOLANGE, hypomagnesemia/hypokalemia. Her weakness has been ongoing x 2 months, suspect multifactorial - dehydration/SOLANGE, hypomagnesemia/hypokalemia, BCG treatments/Bladder Cancer. Workup does not reveal any acute indications of infection, normal cardiac markers, normal thyroid. Much improved with IVFs and electrolyte replacement. PT/OT cleared for home #SOLANGE | Hypomagnesemia/Hypokalemia - Likely secondary to renal hypoperfusion from decreased intake over the past [address] A/P without evidence of obstruction, no UTI. EKG without ST changes. Received IVF and Cr has normalized, baseline ~ 0.8. K 3.0 on admission, replaced PO and IV and now replete. Mag 0.8 on admission, improves with repletion but then drops again - suspect total body depletion. Given 3gm IV mag today, continue PO mag BID and PPI stopped. Follow magnesium after discharge-if remains low, consider magnesium wasting and check urine magnesium, consider nephrology referral #Pulmonary nodules/COPD/nicotine dependence - Pt reports knowing of L lung nodule, h/o smoking + COPD. Still smokes, ~ 1ppd. Patient reports has PET/CT ordered, but not scheduled - encouraged her to do so. Continue home inhalers and O2 2L HS - continue. 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 Reports ongoing since December. Initially had periodontal infection in beginning of December 2024. Continues to have "flowered sawdust" taste in mouth. No prior rheumatological workup, does have a slight adenoma identified on CTAP as well as right changes of the lungs. ? Sjogren's vs tick vs vitamin. Patient does states that she has an upcoming appointment Dr Tristian Chen, ENT. Additional workup ordered, mostly pending: DEBBIE, ESR (51), CRP (3.5), histoplasmosis ab, [place], iron panel, folate (8.18), B6, anti-Ro, anti-La, tick panel, CK (41) Will fax discharge summary to his office. #Bladder CA- S/p TURBT 04/14/2024, repeat resection 06/03/2024 negative for carcinoma, induction BCG completed 08/06/2024; ongoing BCG treatment, continues to follow with urology, most recent visit 12/21/2024 #Breast CA- L sided 11/19/2016 #Adrenal adenoma- Identified on CTAP, L adrenal adenoma - ? Systemic condition, continue to monitor as appropriate #HTN- Amlodipine, losartan - continue #GERD- Omeprazole discontinued, can use Pepecid as needed Dispo: discharge to home today, PCP follow up Notes For Next Care Provider should have mag level checked within the next week Medication Changes From Visit PPI discontinued Admission HPI Per Admitting Provider 75-year-old female PMHx COPD, HTN, bladder carcinoma s/p TURBT 04/14/2024, history of breast cancer presenting for weakness x 2 months. Patient reports 2 years ago she had episode of similar symptoms where she had a bad taste in her mouth. It was found to be peritonsillar disease and she was treated with antibiotics and it resolved. 2 days [employer] she states she had a "bad taste" in her mouth so she called her dentist at that time again who to treat her with antibiotics and then evaluated her oropharynx, she was without definable lesions. She was on oral antibiotics as well as Biotene mouthwash, toothpaste. Patient continued to have ongoing symptoms, were not resolved with medications. Was seen by ENT, diagnosed with burning mouth syndrome. She reports inability to tolerate solid foods given the abnormal sensation and dryness in her mouth. She does drink liquids, but still has some difficulties with this. Denies any pain or odynophagia, just has an abnormal taste that has been bothersome to her specially when eating. She does occasionally have sensation that there is "snot stuck in her throat". No additional congestive symptoms, no coughing. Given her inability to tolerate oral intake, she has had ongoing weakness worsening since this is started. Weakness is described as generalized, no focal deficits. She does have lightheadedness, specifically when changing positions. Has not passed out. No falls. She does have a history of COVID. Denies chest pain, SOB, palpitations, abdominal pain, N/V/D/C, focal deficits (extremities), fever/chills, additional URI symptoms, falls or syncope. Patient does have upcoming BCG treatment for bladder cancer first week of March. ED evaluation CBC without leukocytosis or leukopenia, H&H 16.5/47.5, platelets WNL; PT/INR pending; CMP potassium 3, AG 12, BUN 28, creatinine 1.97, protein 8.6, globulin 4.8; magnesium 0.8; troponin 14.8, pending repeat; vitamin B12 1330, TSH 1.535; CTAP left lower lobe nodule, cholelithiasis, probable L adrenal adenoma, diverticulosis; chest CT scattered pulmonary nodular densities; head CT no acute findings, chronic white matter ischemic changes; EKG NSR at 89 bpm.; Provided with 1L NSS, KCl 40 mEq p.o., methylprednisolone 40 mg IV, mag sulfate 2 g IV, famotidine 20 mg IV, diphenhydramine 50 mg IV in ED. Please see Dr. Naylor's attestation for adjustments/additions to treatment plan. Discharge Exam General: NAD, VS as above, tearful and stressed about all of her medical problems HEENT: MM dry, no oc or erythema Resp: normal respiratory effort, lungs clear to auscultation CV: RRR, no murmur, Abd: normal bowel sounds, non tender, soft Extremities: Moves all extremities, no edema Neuro: A&O x3, Discharge Plan Discharge Items Patient Disposition: Home - Self-Care Reason For Visit: SOLANGE, HYPOMAG, HYPOKALEMIA, WEAK Discharge Diagnosis: dehydration, low magnesium and potassium Condition on Discharge: Fair Activity: Resume your previous activity Weightbearing: Full weightbearing Non-emergency contact: Primary Care Provider Call non-emergency contact if: you have any medication questions, your symptoms worsen, your pain is worsening and your temperature is above 101 Follow-up/Referrals: Jenny Guerrero CRNP [Primary Care Provider] - (follow up within one week - recommend repeat Magnesium level with upcoming labs ) Diet: Regular Addtl Attending Provider Instructions: Ms. Brown, You were hospitalized after having weakness at home - this was caused by dehydration, poor appetite and low electrolyte levels. Thankfully, we did not find any signs of infection. Your strength has improved with IV fluids and electrolyte replacement. You have been started on magnesium supplementation twi ce a day and this has been sent to your pharmacy. Would also recommend multivitamin if you can tolerate it. Please follow up with your PCP within one week and have labs drawn to recheck your magnesium. You also have multiple tests pending for your burning mouth syndrome. Results can be reviewed with your PCP. Continue specialist follow up. Recommend having PET scan scheduled to asses the pulmonary nodule. If you get to a point where you no longer are wanting to have any treatment or workup done, would recommend discussing hospice with your providers to not have the emotional toll of all the healthcare system. We have stopped your omeprazole as that can interfere with your magnesium absorption. Activity: You can do normal everyday activities as your body allows. Take rest breaks if you feel tired. Do not overexert. Stop activity if you have pain, shortness of breath or feel dizzy. Follow-up appointments: Make an appointment with your primary care physician within one week of discharge. A copy of this summary will be sent to them. Every time you see your primary care physician, or any other doctor, bring your medication list, and a list of questions. CONTACT YOUR PRIMARY CARE PROVIDER if you experience any of the following: Shortness of breath or difficulty breathing Fevers or chills Feeling tired with normal activity or experiencing dizziness or fainting Difficulty following your treatment plan, or difficulty taking medications CALL 911 OR GO TO THE EMERGENCY DEPARTMENT if you experience any of the following: Severe abdominal pain or nausea/vomiting Severe chest pain, or chest pain that radiates (moves) to your jaw or arm Sudden, severe shortness of breath or difficulty breathing Thank you for allowing us to participate in your care. Pending Studies at Discharge: No Stand-Alone Forms: [facility] [id number], Smoking Cessation Medications and DC Order Prescriptions: New magnesium chloride [Mag 64] 64 mg Tablet,Delayed Release (Dr/Ec) 64 mg PO BID 30 Days Qty: 60 0RF Continued calcium carbonate-vitamin D3 600 mg-12.5 mcg (500 unit) capsule 1 cap PO DAILY Rx Instructions: Does not take daily, takes as she desires losartan 100 mg tablet 100 mg PO QAM latanoprost 0.005 % drops 1 drp ophthalmic (eye) HS amlodipine 5 mg tablet 5 mg PO QAM Anoro Ellipta 62.5-25 mcg/actuation blister with device 1 inh inhalation QAM ibuprofen 200 mg Tablet 200 mg PO Q6H PRN (Reason: Pain) Discontinued omeprazole 20 mg capsule,delayed release(DR/EC) 20 mg PO QAM Discharge Orders: Discharge Order (Routine); Ordered 03/09/25 Ordered By: Irma Gimenez Admission Data Admit Date/Time: 03/06/25 20:06 Attending Provider: Jeimy Rich Admit Provider: Blayne Naylor Primary Care Provider: Jenny Guerrero Other Interventions: Discharge Summary Assessment (RN) Last Done: 03/09/25 16:21 Hospital Stay Data Consultations 03/06/25 19:47 ED Decision to Admit Stat Diagnostic Imagining Performed Abdomen/Pelvis CT 03/06/25 16:24 INDICATION: Loss of appetite, unexplained weight loss COMPARISON: None TECHNIQUE: Contiguous axial CT images were obtained through the abdomen and pelvis. Dose reduction according to patient size and/or automated exposure control techniques have been utilized for this exam. FINDINGS: CT ABDOMEN: LUNG BASES: Numerous bulla.Pulmonary scarring. There is 1 cm noncalcified pulmonary nodule in the left lower lobe. LIVER: No worrisome hepatic lesions. SPLEEN: Unremarkable. GALLBLADDER: Calcified gallstones. KIDNEYS: No hydronephrosis or nephrolithiasis. No solid renal lesions. PANCREAS: Unremarkable. ADRENAL GLANDS: Hypertrophy of the right adrenal gland. There is 1.4 cm low-attenuation left adrenal gland nodule, statistically representing an adenoma. PROXIMAL BOWEL: No small bowel obstruction. RETROPERITONEUM: No AAA. No significant lymphadenopathy. OTHER: No abscess. Grade 1 spondylolisthesis of L5 on S1 with bilateral L5 pars defects CT PELVIS: URINARY BLADDER: Unremarkable. PELVIC ORGANS: Unremarkable. DISTAL BOWEL: [id number] stool in the colon. Multiple scattered sigmoid diverticula OTHER: No significant lymphadenopathy. There is no free pelvic fluid. IMPRESSION: Left lower lobe lung nodule. Further evaluation with nuclear medicine pet imaging should be considered. Cholelithiasis. Probable left adrenal adenoma. Diverticulosis. Electronically signed by Guillermo Muniz 03-06-2025 6:[address] 03/06/25 16:24 CT CHEST WITH CONTRAST: HISTORY: Unexpected weight loss. History of cancer TECHNIQUE: CT of the chest was obtained with intravenous contrast. Coronal and sagittal reformats were created. IV CONTRAST: 100 mL of OMNIPAQUE 300 COMPARISON: None FINDINGS: LOWER NECK: Right thyroid lobe nodule measuring 1.3 cm LYMPH NODES: A few small nonenlarged lymph nodes in the mediastinum. No lymphadenopathy by size criteria. CARDIOVASCULAR: Cardiac size is mildly enlarged. Mild coronary artery calcifications are noted. No aortic aneurysm. No evidence of central pulmonary embolism or acute aortic process. Small pericardial fluid LUNGS: The trachea and central bronchi are widely patent. No focal confluent infiltrates are seen. Diffuse emphysema and pulmonary fibrosis with extensive cystic changes of the lungs. There are multiple nodular densities in the lungs. For example in the left lower lobe there are nodular densities measuring up to 1.1 cm in size (series 9, image 183). There is also a spiculated nodular density in the right upper lobe measuring approximately 1.3 cm (series 9 image 90). PLEURA: There are no pleural effusions. There is no pneumothorax. OSSEOUS STRUCTURES: No acute findings IMPRESSION: Scattered pulmonary nodular densities as above measuring up to 1.3 cm. Given symptoms and history, recommend further evaluation with PET/CT Electronically signed by Speedy Cordero 03-06-2025 7:[address] 03/06/25 16:24 INDICATION: Unexplained weight loss. Loss of appetite. COMPARISON: None TECHNIQUE: Contiguous 5 mm axial images from foramen magnum to vertex were obtained. Dose reduction according to patient size and/or automated exposure control techniques have been utilized for this exam. FINDINGS: There is no evidence of acute hemorrhage or mass effect. Bilateral white matter low attenuation areas are nonspecific, but likely related to chronic small vessel ischemic changes. There is no evidence of hydrocephalus, midline shift, or extra-axial fluid collections. IMPRESSION: 1. No CT evidence of acute intracranial pathology. 2. Chronic white matter ischemic changes. Electronically signed by Guillermo Muniz 03-06-2025 6:26 PM Pending Results Patient Have Any Pending Studies at Discharge: No Discharge Instructions Given to Patient (Per Discharging Provider) Ms. Brown, You were hospitalized after having weakness at home - this was caused by dehydration, poor appetite and low electrolyte levels. Thankfully, we did not find any signs of infection. Your strength has improved with IV fluids and electrolyte replacement. You have been started on magnesium supplementation twice a day and this has been sent to your pharmacy. Would also recommend multivitamin if you can tolerate it. Please follow up with your PCP within one week and have labs drawn to recheck your magnesium. You also have multiple tests pending for your burning mouth syndrome. Results can be reviewed with your PCP. Continue specialist follow up. Recommend having PET scan scheduled to asses the pulmonary nodule. If you get to a point where you no longer are wanting to have any treatment or workup done, would recommend discussing hospice with your providers to not have the emotional toll of all the healthcare system. We have stopped your omeprazole as that can interfere with your magnesium absorption. Activity: You can do normal everyday activities as your body allows. Take rest breaks if you feel tired. Do not overexert. Stop activity if you have pain, shortness of breath or feel dizzy. Follow-up appointments: Make an appointment with your primary care physician within one week of discharge. A copy of this summary will be sent to them. Every time you see your primary care physician, or any other doctor, bring your medication list, and a list of questions. CONTACT YOUR PRIMARY CARE PROVIDER if you experience any of the following: Shortness of breath or difficulty breathing Fevers or chills Feeling tired with normal activity or experiencing dizziness or fainting Difficulty following your treatment plan, or difficulty taking medications CALL 911 OR GO TO THE EMERGENCY DEPARTMENT if you experience any of the following: Severe abdominal pain or nausea/vomiting Severe chest pain, or chest pain that radiates (moves) to your jaw or arm Sudden, severe shortness of breath or difficulty breathing Thank you for allowing us to participate in your care. Supervising Physician Co-Signing Physician Notes MADELAINE Supervision Note: I did not personally see or examine the patient today, but I verified all lopez points of MADELAINE Gimenez's assessment and plan with the following exceptions/additions: None Total Time Total Time Spent Total Time Spent (In Minutes): Time spent day of discharge 40 minutes including direct patient care, medication reconciliation, documentation, review of labs and images, and coordination of care. Coding Level of Care Code 45119 INP/OBS DISCH >30 MIN Diagnoses Weakness R53.1 SOLANGE (acute kidney injury) N17.9 Hypomagnesemia E83.42 Hypokalemia E87.6
[2025-03-09 16:23] VITALS: PULSE 69
--- NOTE | 2025-03-10 05:36 | Coding Query ---
CODING QUERY To promote full compliance with coding requirements relating to patient care, provider participation is requested in all cases of certified medical records coder uncertainty. Please assist us with the question(s) below: Coding Question(s): Pt adm with SOLANGE. Please check below the phrase that describes elevated Troponin (14.8). Thanks for your help. DELMIS Sarkar CCS ( documented on History/Physical) Physician's Response(s): The elevated Troponin was demand ischemia, POA ____x The elevated Troponin was not demand ischemia Other/ Please document: Principal Diagnosis: "that condition established after study, to be chiefly responsible for occasioning the admission of the patient to the hospital for care." Co-Existing Principal Diagnosis: "when two or more diagnoses equally meet the criteria for principal diagnosis as determined by the circumstances of admission, diagnostic work up, and/or therapy provided, and the Alphabetic Index, Tabular List, or another coding guideline does not provide sequencing direction, any one of the diagnoses may be sequenced first." "When the physician has documented what appears to be a current diagnosis in the body of the record, but has not included the diagnosis in the final diagnostic statement, the physician should be asked whether the diagnosis should be added." (Source Coding [facility] 2 QTR90. p3-4) CORIE
== END 2025-03-09 17:31 | disposition home or self-care (01) | DRG 683 ==
LOC: ED 14:52 → SUATTDRO 20:06 → 2W 20:06